=== PATIENT | male | born 1985 | race Caucasian/White ===

== ENCOUNTER 2016-10-21 12:51 | Emergency (ER) | payer OTHER, SELFPAY ==
[2016-10-21] MEDS ORDERED: CLINDAMYCIN INJ 900MG/6ML VIAL As Ordered ONE (13:31)
[2016-10-21 13:49] LABS: BASO % 0.2 % (0.0-1.0); EOS # 0.3 K/mm3 (0.0-0.50); EOS % 1.7 % (0.0-3.0); LARGE UNSTAINED CELL # 0.4 K/mm3 (0.0-0.4); LARGE UNSTAINED CELL % 2.4 % (0.0-4.0); LYMPH # 1.1 K/mm3 (1.5-4.5); LYMPH % 7.4 % (24.0-44.0); MEAN CORPUSCULAR HEMOGLOBIN 30.9 pg (27.0-33.0); MEAN CORPUSCULAR HGB CONC 34.3 g/dl (32.0-36.5); MONO % 6.4 % (0.0-5.0); NEUTROPHILS # 12.6 K/mm3 (1.8-7.7); NEUTROPHILS % 81.8 % (36.0-66.0); PLATELET COUNT, AUTOMATED 245 k/mm3 (150-450); RED CELL DISTRIBUTION WIDTH 11.1 % (11.5-14.5); WHITE BLOOD COUNT 15.4 K/mm3 (4.0-10.0)
[2016-10-21 14:08] LABS: ANION GAP 8 MEQ/L (8-16); BLOOD UREA NITROGEN 15 MG/DL (7-18); CALCIUM LEVEL 9.4 MG/DL (8.5-10.1); CARBON DIOXIDE LEVEL 28 MEQ/L (21-32); CHLORIDE LEVEL 103 MEQ/L (98-107); CREATININE FOR GFR 0.99 MG/DL (0.70-1.30); GLOMERULAR FILTRATION RATE > 60.0 (>60); GLUCOSE, FASTING 96 MG/DL (70-105); SODIUM LEVEL 139 MEQ/L (136-145)
[2016-10-21] MEDS ORDERED: ISOVUE-370 76% 100ML VIAL (Q9967) As Ordered ONE (15:08)
[2016-10-21] MEDS ORDERED: LIDOCAINE 1% MDV 20ML VIAL As Ordered ONE (16:31)
--- NOTE | 2016-10-21 17:13 | EDDOCDS ---
Nurse's Notes [facility] Name: Brandi Martinez Age: 31 yrs Sex: Male : 1985 Arrival Date: 10/21/2016 Time: 12:51 Bed I3 / M3 Private MD: Jt Benjamin Diagnosis: Cutaneous abscess of face Presentation: 10/21 12:57 Presenting complaint: Patient states: Abscess to left cheek began Sunday. Adult Sepsis mlb1 Screening: The patient does not have new or worsening altered mentation. Patient's respiratory rate is less than 22. Systolic blood pressure is greater than 100. Patient has a qSOFA score of 0- Negative Sepsis Screen. Suicide/Homicide risk assessment- the patient denies having any suicidal and/or homicidal ideations and does not present with any other emotional, behavioral or mental health complaints. 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 Transition of care: patient was not received from another setting of care. 12:57 Method Of Arrival: Walkin/Carried/Asstd mlb1 12:57 Acuity: TABITHA Level 4 mlb1 Triage Assessment: 13:00 General: Appears in no apparent distress, Behavior is appropriate for age, cooperative. mlb1 Pain: Location: left jaw Pain currently is 5 out of 10 on a pain scale. HIV screening NA for this visit Offered previously. Historical: - Allergies: no known allergies; - Home Meds: 1. amoxicillin 875 mg Oral tab 1 tab every 12 hours 2. diclofenac sodium 75 mg oral TbEC 1 tab 2 times per day - PMHx: none; - PSHx: none; - Social history: Smoking status: Patient uses tobacco products, light tobacco smoker. No barriers to communication noted, The patient speaks fluent Bahamian, Speaks appropriately for age. - Family history: Not pertinent. - : The pt / caregiver states he / she is not on anticoagulants. Home medication list is obtained from the patient. - Exposure Risk Screening:: None identified. Screenin:41 Screening information is obtained from the patient. Fall risk: No risks identified. dls Assistance ADL's: requires no assistance with activities of daily living. Abuse/DV Screen: The patient / caregiver reports he/she is: not in a situation that causes fear, pain or injury. Nutritional screening: No deficits noted. Advance Directives: Currently, there is no health care proxy. There is no active DNR order. There is no living will. There is no Power of Fiscal Assistant. home support is adequate. Assessment: 13:49 General: Appears in no apparent distress, Behavior is cooperative, pleasant. EENT: mk4 swelling left side of neck . EENT: Denies difficulty swallowing. Respiratory: Airway is patent Respiratory effort is even, unlabored, Respiratory pattern is regular. Derm: Skin is intact, is healthy with good turgor, Skin is pink, warm & dry. 15:01 General: IV meds infused IV fluids still infusing saline lock site remains patent and dls clear awaiting CT results.. 15:09 General: . dls 15:19 General: Pt ambulatory to CT and returned IV site remains patent and clear.. dls 16:23 General: Appears in no apparent distress, Behavior is appropriate for age, cooperative. jmb Neurological: Level of Consciousness is awake, alert, obeys commands, Oriented to person, place, time. Respiratory: Airway is patent Respiratory effort is even, unlabored, Respiratory pattern is regular, symmetrical. 17:09 General: Patient instructed on discharge instructions. Patient asked if there were any b questions regarding discharge, patient stated no. IV discontinued per hospital policy. Patient signed discharge instructions. Patient discharged in stable condition. . Vital Signs: 12:52 BP 167 / 105; Pulse 86; Resp 18; Temp 96.7(O); Pulse Ox 99% on R/A; Weight 80.74 kg; elp Height 6 ft. 2 in. (187.96 cm); Pain 7/10; 17:09 BP 142 / 98; Pulse 90; Resp 18; Temp 98.9(O); Pulse Ox 97% on R/A; Pain 3/10; jmb 12:52 Body Mass Index 22.85 (80.74 kg, 187.96 cm) [facility] Vitals: 12:52 Log In Time: October 21, 2016 at 12:50. [facility] ED Course: 12:52 Patient visited by Amy Ureña PCA. elp 12:52 Jt Benjamin MD is Private Physician. elp 12:52 Patient moved to Waiting elp 12:53 Patient moved to Pre RCE elp 12:57 Patient visited by Jorgito Gold RN. mlb1 12:58 Triage Initiated mlb1 13:00 Patient visited by Jorgito Gold RN. mlb1 13:01 Patient moved to Triage 2 jp4 13:11 [facility] ar2 13:11 Addy Goldstein MD is Attending Physician. ar2 13:11 Patient visited by Kwame Aden PA-C. ar2 13:28 Patient moved to I3 / M3 ar2 13:40 CBC with Diff Sent. dls 13:40 MED Profile Sent. dls 13:40 -Blood Culture Sent. dls 13:40 BLOOD CULTURES Sent. dls 13:41 The patient / caregiver is instructed regarding the plan of care and ED course. dls 13:41 Inserted saline lock: 20 gauge in left antecubital area and blood collected. The dls patient tolerated the procedure well. No procedures done that require assistance. 13:48 Patient visited by Gillian Licea RN. mk4 14:28 [facility] Payment Agreement was scanned into [employer] and attached to record. mm15 14:46 Patient visited by Gillian Licea RN. mk4 15:49 Patient visited by Mariusz Wheat. jml1 16:23 Patient visited by Virgilio Estevez RN. jmb 17:09 Discontinued lock intact, bleeding controlled, pressure dressing applied, No jmb redness/swelling at site. Administered Medications: 13:49 Drug: NS 0.9% 1000 ml [sodium chloride 0.9 % intravenous solution] Route: IV; Rate: mk4 bolus; Site: left antecubital; 16:38 Follow up: IV Status: Completed infusion dls 13:49 Drug: Clindamycin 900 mg Route: IVPB; Infused Over: 30 mins; Site: left antecubital; mk4 16:32 Drug: Lidocaine 10 ml [lidocaine 10 mg/mL (1 %) injection solution (10 mL)] {Note: jmb administered by Kwame Huff} Route: Infiltration; Order Results: Lab Order: CBC with Diff; SPEC'M 10/21/16 13:39 Test: WHITE BLOOD COUNT; Value: 15.4; Range: 4.0-10.0; Abnormal: Above high normal; Units: K/mm3; Status: F Test: RED BLOOD COUNT; Value: 5.23; Range: 4.30-6.10; Units: M/mm3; Status: F Test: HEMOGLOBIN; Value: 16.1; Range: 14.0-18.0; Units: g/dl; Status: F Test: HEMATOCRIT; Value: 47.1; Range: 42.0-52.0; Units: %; Status: F Test: MEAN CORPUSCULAR VOLUME; Value: 90.0; Range: 80.0-96.0; Units: fl; Status: F Test: MEAN CORPUSCULAR HEMOGLOBIN; Value: 30.9; Range: 27.0-33.0; Units: pg; Status: F Test: MEAN CORPUSCULAR HGB CONC; Value: 34.3; Range: 32.0-36.5; Units: g/dl; Status: F Test: RED CELL DISTRIBUTION WIDTH; Value: 11.1; Range: 11.5-14.5; Abnormal: Below low normal; Units: %; Status: F Test: PLATELET COUNT, AUTOMATED; Value: 245; Range: 150-450; Units: k/mm3; Status: F Test: NEUTROPHILS %; Value: 81.8; Range: 36.0-66.0; Abnormal: Above high normal; Units: %; Status: F Test: LYMPH %; Value: 7.4; Range: 24.0-44.0; Abnormal: Below low normal; Units: %; Status: F Test: MONO %; Value: 6.4; Range: 0.0-5.0; Abnormal: Above high normal; Units: %; Status: F Test: EOS %; Value: 1.7; Range: 0.0-3.0; Units: %; Status: F Test: BASO %; Value: 0.2; Range: 0.0-1.0; Units: %; Status: F Test: LARGE UNSTAINED CELL %; Value: 2.4; Range: 0.0-4.0; Units: %; Status: F Test: NEUTROPHILS #; Value: 12.6; Range: 1.8-7.7; Abnormal: Above high normal; Units: K/mm3; Status: F Test: LYMPH #; Value: 1.1; Range: 1.5-4.5; Abnormal: Below low normal; Units: K/mm3; Status: F Test: MONO #; Value: 1.0; Range: 0.0-0.8; Abnormal: Above high normal; Units: K/mm3; Status: F Test: EOS #; Value: 0.3; Range: 0.0-0.50; Units: K/mm3; Status: F Test: BASO #; Value: 0.0; Range: 0.0-0.2; Units: K/mm3; Status: F Test: LARGE UNSTAINED CELL #; Value: 0.4; Range: 0.0-0.4; Units: K/mm3; Status: F Lab Order: MED Profile; SPEC'M 10/21/16 13:38 Test: GLUCOSE, FASTING; Value: 96; Range: 70-105; Units: MG/DL; Status: F Test: BLOOD UREA NITROGEN; Value: 15; Range: 7-18; Units: MG/DL; Status: F Test: CREATININE FOR GFR; Value: 0.99; Range: 0.70-1.30; Units: MG/DL; Status: F Test: GLOMERULAR FILTRATION RATE; Value: > 60.0; Range: >60; Status: F Test: SODIUM LEVEL; Value: 139; Range: 136-145; Units: MEQ/L; Status: F Test: POTASSIUM SERUM; Value: 4.0; Range: 3.5-5.1; Units: MEQ/L; Status: F Test: CHLORIDE LEVEL; Value: 103; Range: 98-107; Units: MEQ/L; Status: F Test: CARBON DIOXIDE LEVEL; Value: 28; Range: 21-32; Units: MEQ/L; Status: F Test: ANION GAP; Value: 8; Range: 8-16; Units: MEQ/L; Status: F Test: CALCIUM LEVEL; Value: 9.4; Range: 8.5-10.1; Units: MG/DL; Status: F Test Note: ; Units are mL/min/1.73 m2 Chronic Kidney Disease Staging per NKF: Stage I & II GFR >=60 Normal to Mildly Decreased Stage III GFR 30-59 Moderately Decreased Stage IV GFR 15-29 Severely Decreased Stage V GFR <15 Very Little GFR Left ESRD GFR <15 on MANAGER PSYCHOLOGY Outcome: 17:02 Discharge ordered by Provider. ar2 17:09 Discharge Assessment: Patient awake, alert and oriented x 3. No cognitive and/or jmb functional deficits noted. Patient verbalized understanding of disposition instructions. Patient awake and alert. obeys commands, Oriented to person, place and time. Patient verbalized understanding of disposition instructions. Patient has no functional deficits. patient administered narcotics - no. The following High Risk Discharge criteria are identified: None. Discharged to home ambulatory, with significant other. Condition: stable Condition: improved. Discharge instructions given to patient, Instructed on discharge instructions, follow up and referral plans. medication usage, Demonstrated understanding of instructions, medications, Pt was receptive of discharge instructions/ teaching. Prescriptions given X 2. CT Study completed. Property sent home with patient. 17:12 Patient left the ED. jmb Signatures: Lili Estrada, RN RN dls Jorgito Gold RN RN mlb1 Kwame Aden PA-C PAGallito ar2 Mariusz Wheat jml1 Jackie Evans mm15 Amy Ureña, ASSISTANT PLANT MANAGER ASSISTANT PLANT MANAGER Virgilio Jones,RN RN sierrab Gillian Licea RN RN mk4 Ramírez Bates jp4 Corrections: (The following items were deleted from the chart) 12:58 12:57 Acuity: TABITHA Level 3 mlb1 mlb1 MTDD
--- NOTE | 2016-10-21 17:13 | EDDOCDS ---
Physician Documentation [facility] Name: Brandi Martinez Age: 31 yrs Sex: Male : 1985 Arrival Date: 10/21/2016 Time: 12:51 Bed I3 / M3 Private MD: Jt Benjamin Disposition: 10/21/16 17:02 Discharged to Home/Self Care. Impression: Cutaneous abscess of face. - Condition is Stable. - Discharge Instructions: Abscess, Incision and Drainage. - Prescriptions for Clindamycin HCl 300 mg Oral Capsule - take 1 capsule by ORAL route every 6 hours; 39 capsule. [place] 5- 325 mg Oral Tablet - take 1 tablet by ORAL route every 6 hours As needed MDD: 4 tabs; 6 tablet. - Medication Reconciliation, Local Pharmacy Hours form. - Follow up: Emergency Department; When: 1 - 2 days; Reason: Recheck today's complaints. - Problem is new. - Symptoms have improved. - Notes: take medications as prescribed. return to ER on Sunday for recheck. Historical: - Allergies: no known allergies; - Home Meds: 1. amoxicillin 875 mg Oral tab 1 tab every 12 hours 2. diclofenac sodium 75 mg oral TbEC 1 tab 2 times per day - PMHx: none; - PSHx: none; - Social history: Smoking status: Patient uses tobacco products, light tobacco smoker. No barriers to communication noted, The patient speaks fluent Italian, Speaks appropriately for age. - Family history: Not pertinent. - : The pt / caregiver states he / she is not on anticoagulants. Home medication list is obtained from the patient. - Exposure Risk Screening:: None identified. Vital Signs: 10/21 12:52 BP 167 / 105; Pulse 86; Resp 18; Temp 96.7(O); Pulse Ox 99% on R/A; Weight 80.74 kg / elp 178 lbs; Height 6 ft. 2 in. (187.96 cm); Pain 7/10; 17:09 BP 142 / 98; Pulse 90; Resp 18; Temp 98.9(O); Pulse Ox 97% on R/A; Pain 3/10; jmb 12:52 Body Mass Index 22.85 (80.74 kg, 187.96 cm) elp MDM: 13:27 IV Saline Lock ordered. ar2 13:27 -Blood Culture (Adults Only), peripheral from different site, or from device/port/PICC ar2 etc. if present ordered. 13:27 NS 0.9% 1000 ml IV at bolus once ordered. ar2 13:27 Clindamycin 900 mg IVPB once over 30 mins; dilute in 50mL of NS or D5W ordered. ar2 13:28 CBC with Diff Ordered. EDMS 13:28 MED Profile Ordered. EDMS 13:28 -Blood Culture Ordered. EDMS 13:29 CT Neck With Contrast Ordered. EDMS 13:32 -Blood Culture (Adults Only), peripheral from different site, or from device/port/PICC jml1 etc. if present complete. 13:34 BLOOD CULTURES Ordered. EDMS 14:16 CBC with Diff Reviewed. ar2 14:16 MED Profile Reviewed. ar2 14:20 Financial registration complete. mm15 14:28 [facility] Payment Agreement was scanned into [employer] and attached to record. mm15 16:31 Lidocaine 10 mg/mL (1 %) 10 ml Infiltration once; to bedside ordered. ar2 16:58 Wound Culture & GS - All Other Sources Ordered. EDMS Administered Medications: 13:49 Drug: NS 0.9% 1000 ml [sodium chloride 0.9 % intravenous solution] Route: IV; Rate: mk4 bolus; Site: left antecubital; 16:38 Follow up: IV Status: Completed infusion dls 13:49 Drug: Clindamycin 900 mg Route: IVPB; Infused Over: 30 mins; Site: left antecubital; mk4 16:32 Drug: Lidocaine 10 ml [lidocaine 10 mg/mL (1 %) injection solution (10 mL)] {Note: jmb administered by Kwame Huff} Route: Infiltration; Signatures: Dispatcher [employer] EDMS Jorgito Gold RN RN mlb1 Kwame Aden PAGallito PAJuliaC ar2 Mariusz Wheat jml1 Jackie Evans mm15 Virgilio Estevez RN RN Gillian Sparrow RN RN mk4 Lili Estrada RN dls The chart was reviewed and I authenticate all verbal orders and agree with the evaluation and treatment provided.Attachments: 14:28 [facility] [place] mm15 MTDD
--- NOTE | 2016-10-22 09:25 | REP ---
CT SOFT-TISSUE NECK WITH CONTRAST: 10/21/2016. Clinical history: Left neck abscess. Technique. The patient received 75 mL as Isovue 370 scanning through the neck with both coronal and sagittal reconstructions. Findings: There were no prior studies. Prominent soft tissue swelling of the left submandibular region. This is lateral and inferior to the alveolar ridge of the mandible. I do not see bony destructive lesion of that alveolar ridge or ramus of the mandible. There is soft-tissue swelling with subcutaneous edema fairly lucent center with ill-defined enhancing edges measuring about 2.9 x 2.8 x 1.4 cm for a fluid collection which appears to be pointing into the subcutaneous tissues. Submandibular glands are intact. Submandibular and jugular nodes are prominent on that side suggesting reactive nodes other nodes in the anterior posterior cervical chain are not enlarged. Tongue base intact. Parapharyngeal space shows some preservation of fat. The airway from the nasopharynx through oropharynx, hypopharynx, trachea and subglottic trachea were intact. The bone windows show dentition grossly intact without destructive erosive lesions of that mandible. Visualized sinuses were clear. The underlying cervical vertebral bodies, posterior elements, disc spaces and central canal is intact. The base of the brain visible was unremarkable as were the mastoids. Impression: 1. Prominent soft tissue swelling over the left submandibular region with large soft tissue abscess 2.9 x 2.8 x 1.4 cm for the fluid collection with enhancing rim noted with much more extensive zone of edema surrounding it. This is almost pointed to the skin surface. However the submandibular glands are not grossly enlarged. There are reactive nodes nearby. No destructive lesions in the mandible. Signed by Burak Brock MD 10/22/2016 06:53 P
--- NOTE | 2016-10-23 18:12 | EDDOCDS ---
Physician Documentation [facility] Name: Brandi Martinez Age: 31 yrs Sex: Male : 1985 Arrival Date: 10/21/2016 Time: 12:51 Bed I3 / M3 Private MD: Jt Benjamin Disposition: 10/21/16 17:02 Discharged to Home/Self Care. Impression: Cutaneous abscess of face. - Condition is Stable. - Discharge Instructions: Abscess, Incision and Drainage. - Prescriptions for Clindamycin HCl 300 mg Oral Capsule - take 1 capsule by ORAL route every 6 hours; 39 capsule. [place] 5- 325 mg Oral Tablet - take 1 tablet by ORAL route every 6 hours As needed MDD: 4 tabs; 6 tablet. - Medication Reconciliation, Local Pharmacy Hours form. - Follow up: Emergency Department; When: 1 - 2 days; Reason: Recheck today's complaints. - Problem is new. - Symptoms have improved. - Notes: take medications as prescribed. return to ER on Sunday for recheck. Historical: - Allergies: no known allergies; - Home Meds: 1. amoxicillin 875 mg Oral tab 1 tab every 12 hours 2. diclofenac sodium 75 mg oral TbEC 1 tab 2 times per day - PMHx: none; - PSHx: none; - Social history: Smoking status: Patient uses tobacco products, light tobacco smoker. No barriers to communication noted, The patient speaks fluent Vietnamese, Speaks appropriately for age. - Family history: Not pertinent. - : The pt / caregiver states he / she is not on anticoagulants. Home medication list is obtained from the patient. - Exposure Risk Screening:: None identified. Vital Signs: 10/21 12:52 BP 167 / 105; Pulse 86; Resp 18; Temp 96.7(O); Pulse Ox 99% on R/A; Weight 80.74 kg / elp 178 lbs; Height 6 ft. 2 in. (187.96 cm); Pain 7/10; 17:09 BP 142 / 98; Pulse 90; Resp 18; Temp 98.9(O); Pulse Ox 97% on R/A; Pain 3/10; jmb 12:52 Body Mass Index 22.85 (80.74 kg, 187.96 cm) elp MDM: 13:27 IV Saline Lock ordered. ar2 13:27 -Blood Culture (Adults Only), peripheral from different site, or from device/port/PICC ar2 etc. if present ordered. 13:27 NS 0.9% 1000 ml IV at bolus once ordered. ar2 13:27 Clindamycin 900 mg IVPB once over 30 mins; dilute in 50mL of NS or D5W ordered. ar2 13:28 CBC with Diff Ordered. EDMS 13:28 MED Profile Ordered. EDMS 13:28 -Blood Culture Ordered. EDMS 13:29 CT Neck With Contrast Ordered. EDMS 13:32 -Blood Culture (Adults Only), peripheral from different site, or from device/port/PICC jml1 etc. if present complete. 13:34 BLOOD CULTURES Ordered. EDMS 14:16 CBC with Diff Reviewed. ar2 14:16 MED Profile Reviewed. ar2 14:20 Financial registration complete. mm15 14:28 [facility] Payment Agreement was scanned into [employer] and attached to record. mm15 16:31 Lidocaine 10 mg/mL (1 %) 10 ml Infiltration once; to bedside ordered. ar2 16:58 Wound Culture & GS - All Other Sources Ordered. EDMS 21:50 T-Sheet-- Draft Copy was scanned into [employer] and attached to record. klr Administered Medications: 13:49 Drug: NS 0.9% 1000 ml [sodium chloride 0.9 % intravenous solution] Route: IV; Rate: mk4 bolus; Site: left antecubital; 16:38 Follow up: IV Status: Completed infusion dls 13:49 Drug: Clindamycin 900 mg Route: IVPB; Infused Over: 30 mins; Site: left antecubital; mk4 16:32 Drug: Lidocaine 10 ml [lidocaine 10 mg/mL (1 %) injection solution (10 mL)] {Note: jmb administered by Kwame Huff} Route: Infiltration; Signatures: Dispatcher [employer] EDMS Jorgito Gold RN RN Kwame Callejas PA-C PA-C ar2 Mariusz Wheat jml1 Jackie Evans mm15 Virgilio Estevez RN RN jmb King, Margaret, RN RN barb4 Mariel Jerome Debra RN dls The chart was reviewed and I authenticate all verbal orders and agree with the evaluation and treatment provided.Attachments: 14:28 [facility] mm15 21:50 T-Sheet-- Draft Copy klr Chart Complete MTDD
--- NOTE | 2016-10-23 18:12 | EDDOCDS ---
Physician Documentation [facility] Name: Brandi Martinez Age: 31 yrs Sex: Male : 1985 Arrival Date: 10/21/2016 Time: 12:51 Bed I3 / M3 Private MD: Jt Benjamin Disposition: 10/21/16 17:02 Discharged to Home/Self Care. Impression: Cutaneous abscess of face. - Condition is Stable. - Discharge Instructions: Abscess, Incision and Drainage. - Prescriptions for Clindamycin HCl 300 mg Oral Capsule - take 1 capsule by ORAL route every 6 hours; 39 capsule. [place] 5- 325 mg Oral Tablet - take 1 tablet by ORAL route every 6 hours As needed MDD: 4 tabs; 6 tablet. - Medication Reconciliation, Local Pharmacy Hours form. - Follow up: Emergency Department; When: 1 - 2 days; Reason: Recheck today's complaints. - Problem is new. - Symptoms have improved. - Notes: take medications as prescribed. return to ER on Sunday for recheck. Historical: - Allergies: no known allergies; - Home Meds: 1. amoxicillin 875 mg Oral tab 1 tab every 12 hours 2. diclofenac sodium 75 mg oral TbEC 1 tab 2 times per day - PMHx: none; - PSHx: none; - Social history: Smoking status: Patient uses tobacco products, light tobacco smoker. No barriers to communication noted, The patient speaks fluent Tongan, Speaks appropriately for age. - Family history: Not pertinent. - : The pt / caregiver states he / she is not on anticoagulants. Home medication list is obtained from the patient. - Exposure Risk Screening:: None identified. Vital Signs: 10/21 12:52 BP 167 / 105; Pulse 86; Resp 18; Temp 96.7(O); Pulse Ox 99% on R/A; Weight 80.74 kg / elp 178 lbs; Height 6 ft. 2 in. (187.96 cm); Pain 7/10; 17:09 BP 142 / 98; Pulse 90; Resp 18; Temp 98.9(O); Pulse Ox 97% on R/A; Pain 3/10; jmb 12:52 Body Mass Index 22.85 (80.74 kg, 187.96 cm) elp MDM: 13:27 IV Saline Lock ordered. ar2 13:27 -Blood Culture (Adults Only), peripheral from different site, or from device/port/PICC ar2 etc. if present ordered. 13:27 NS 0.9% 1000 ml IV at bolus once ordered. ar2 13:27 Clindamycin 900 mg IVPB once over 30 mins; dilute in 50mL of NS or D5W ordered. ar2 13:28 CBC with Diff Ordered. EDMS 13:28 MED Profile Ordered. EDMS 13:28 -Blood Culture Ordered. EDMS 13:29 CT Neck With Contrast Ordered. EDMS 13:32 -Blood Culture (Adults Only), peripheral from different site, or from device/port/PICC jml1 etc. if present complete. 13:34 BLOOD CULTURES Ordered. EDMS 14:16 CBC with Diff Reviewed. ar2 14:16 MED Profile Reviewed. ar2 14:20 Financial registration complete. mm15 14:28 [facility] Payment Agreement was scanned into [employer] and attached to record. mm15 16:31 Lidocaine 10 mg/mL (1 %) 10 ml Infiltration once; to bedside ordered. ar2 16:58 Wound Culture & GS - All Other Sources Ordered. EDMS 21:50 T-Sheet-- Draft Copy was scanned into [employer] and attached to record. klr Administered Medications: 13:49 Drug: NS 0.9% 1000 ml [sodium chloride 0.9 % intravenous solution] Route: IV; Rate: mk4 bolus; Site: left antecubital; 16:38 Follow up: IV Status: Completed infusion dls 13:49 Drug: Clindamycin 900 mg Route: IVPB; Infused Over: 30 mins; Site: left antecubital; mk4 16:32 Drug: Lidocaine 10 ml [lidocaine 10 mg/mL (1 %) injection solution (10 mL)] {Note: jmb administered by Kwame Huff} Route: Infiltration; Signatures: Dispatcher [employer] EDMS Jorgito Gold RN RN Kwame Callejas PA-C PA-C ar2 Mariusz Wheat jml1 Jackie Evans mm15 Virgilio Estevez RN RN jmb King, Margaret, RN RN barb4 Mariel Jerome Debra RN dls The chart was reviewed and I authenticate all verbal orders and agree with the evaluation and treatment provided.Attachments: 14:28 [facility] [place] Payment Agreement mm15 21:50 T-Sheet-- Draft Copy klr Chart Complete MTDD
--- NOTE | 2016-10-23 18:13 | EDDOCDS ---
Nurse's Notes [facility] Name: Brandi Martinez Age: 31 yrs Sex: Male : 1985 Arrival Date: 10/21/2016 Time: 12:51 Bed I3 / M3 Private MD: Jt Benjamin Diagnosis: Cutaneous abscess of face Presentation: 10/21 12:57 Presenting complaint: Patient states: Abscess to left cheek began Sunday. Adult Sepsis mlb1 Screening: The patient does not have new or worsening altered mentation. Patient's respiratory rate is less than 22. Systolic blood pressure is greater than 100. Patient has a qSOFA score of 0- Negative Sepsis Screen. Suicide/Homicide risk assessment- the patient denies having any suicidal and/or homicidal ideations and does not present with any other emotional, behavioral or mental health complaints. Status: Patient is not a government service executive or dependent. Transition of care: patient was not received from another setting of care. 12:57 Method Of Arrival: Walkin/Carried/Asstd mlb1 12:57 Acuity: TABITHA Level 4 mlb1 Triage Assessment: 13:00 General: Appears in no apparent distress, Behavior is appropriate for age, cooperative. mlb1 Pain: Location: left jaw Pain currently is 5 out of 10 on a pain scale. HIV screening NA for this visit Offered previously. Historical: - Allergies: no known allergies; - Home Meds: 1. amoxicillin 875 mg Oral tab 1 tab every 12 hours 2. diclofenac sodium 75 mg oral TbEC 1 tab 2 times per day - PMHx: none; - PSHx: none; - Social history: Smoking status: Patient uses tobacco products, light tobacco smoker. No barriers to communication noted, The patient speaks fluent Malawian, Speaks appropriately for age. - Family history: Not pertinent. - : The pt / caregiver states he / she is not on anticoagulants. Home medication list is obtained from the patient. - Exposure Risk Screening:: None identified. Screenin:41 Screening information is obtained from the patient. Fall risk: No risks identified. dls Assistance ADL's: requires no assistance with activities of daily living. Abuse/DV Screen: The patient / caregiver reports he/she is: not in a situation that causes fear, pain or injury. Nutritional screening: No deficits noted. Advance Directives: Currently, there is no health care proxy. There is no active DNR order. There is no living will. There is no Power of Multimedia Manager. home support is adequate. Assessment: 13:49 General: Appears in no apparent distress, Behavior is cooperative, pleasant. EENT: mk4 swelling left side of neck . EENT: Denies difficulty swallowing. Respiratory: Airway is patent Respiratory effort is even, unlabored, Respiratory pattern is regular. Derm: Skin is intact, is healthy with good turgor, Skin is pink, warm & dry. 15:01 General: IV meds infused IV fluids still infusing saline lock site remains patent and dls clear awaiting CT results.. 15:09 General: . dls 15:19 General: Pt ambulatory to CT and returned IV site remains patent and clear.. dls 16:23 General: Appears in no apparent distress, Behavior is appropriate for age, cooperative. jmb Neurological: Level of Consciousness is awake, alert, obeys commands, Oriented to person, place, time. Respiratory: Airway is patent Respiratory effort is even, unlabored, Respiratory pattern is regular, symmetrical. 17:09 General: Patient instructed on discharge instructions. Patient asked if there were any b questions regarding discharge, patient stated no. IV discontinued per hospital policy. Patient signed discharge instructions. Patient discharged in stable condition. . Vital Signs: 12:52 BP 167 / 105; Pulse 86; Resp 18; Temp 96.7(O); Pulse Ox 99% on R/A; Weight 80.74 kg; elp Height 6 ft. 2 in. (187.96 cm); Pain 7/10; 17:09 BP 142 / 98; Pulse 90; Resp 18; Temp 98.9(O); Pulse Ox 97% on R/A; Pain 3/10; jmb 12:52 Body Mass Index 22.85 (80.74 kg, 187.96 cm) [facility] Vitals: 12:52 Log In Time: October 21, 2016 at 12:50. [facility] ED Course: 12:52 Patient visited by Amy Ureña PCA. elp 12:52 Jt Benjamin MD is Private Physician. elp 12:52 Patient moved to Waiting elp 12:53 Patient moved to Pre RCE elp 12:57 Patient visited by Jorgito Gold RN. mlb1 12:58 Triage Initiated mlb1 13:00 Patient visited by Jorgito Gold RN. mlb1 13:01 Patient moved to Triage 2 jp4 13:11 Kwame Aden PA-C is PHCP. ar2 13:11 Addy Goldstein MD is Attending Physician. ar2 13:11 Patient visited by Kwame Aden PA-C. ar2 13:28 Patient moved to I3 / M3 ar2 13:40 CBC with Diff Sent. dls 13:40 MED Profile Sent. dls 13:40 -Blood Culture Sent. dls 13:40 BLOOD CULTURES Sent. dls 13:41 The patient / caregiver is instructed regarding the plan of care and ED course. dls 13:41 Inserted saline lock: 20 gauge in left antecubital area and blood collected. The dls patient tolerated the procedure well. No procedures done that require assistance. 13:48 Patient visited by Gillian Licea RN. mk4 14:28 PENDING SALE TO [facility] Payment Agreement was scanned into [employer] and attached to record. mm15 14:46 Patient visited by Gillian Licea RN. mk4 15:49 Patient visited by Mariusz Wheat. jml1 16:23 Patient visited by Virgilio Estevez RN. jmb 17:09 Discontinued lock intact, bleeding controlled, pressure dressing applied, No jmb redness/swelling at site. 17:14 Wound Culture & GS - All Other Sources Sent. jml1 21:50 T-Sheet-- Draft Copy was scanned into [employer] and attached to record. klr 02 09:40 CT Neck With Contrast Returned. EDMS Administered Medications: 10/21 13:49 Drug: NS 0.9% 1000 ml [sodium chloride 0.9 % intravenous solution] Route: IV; Rate: mk4 bolus; Site: left antecubital; 16:38 Follow up: IV Status: Completed infusion dls 13:49 Drug: Clindamycin 900 mg Route: IVPB; Infused Over: 30 mins; Site: left antecubital; mk4 16:32 Drug: Lidocaine 10 ml [lidocaine 10 mg/mL (1 %) injection solution (10 mL)] {Note: jmb administered by Kwame Garcia.} Route: Infiltration; Order Results: Lab Order: CBC with Diff; SPEC'M 10/21/16 13:39 Test: WHITE BLOOD COUNT; Value: 15.4; Range: 4.0-10.0; Abnormal: Above high normal; Units: K/mm3; Status: F Test: RED BLOOD COUNT; Value: 5.23; Range: 4.30-6.10; Units: M/mm3; Status: F Test: HEMOGLOBIN; Value: 16.1; Range: 14.0-18.0; Units: g/dl; Status: F Test: HEMATOCRIT; Value: 47.1; Range: 42.0-52.0; Units: %; Status: F Test: MEAN CORPUSCULAR VOLUME; Value: 90.0; Range: 80.0-96.0; Units: fl; Status: F Test: MEAN CORPUSCULAR HEMOGLOBIN; Value: 30.9; Range: 27.0-33.0; Units: pg; Status: F Test: MEAN CORPUSCULAR HGB CONC; Value: 34.3; Range: 32.0-36.5; Units: g/dl; Status: F Test: RED CELL DISTRIBUTION WIDTH; Value: 11.1; Range: 11.5-14.5; Abnormal: Below low normal; Units: %; Status: F Test: PLATELET COUNT, AUTOMATED; Value: 245; Range: 150-450; Units: k/mm3; Status: F Test: NEUTROPHILS %; Value: 81.8; Range: 36.0-66.0; Abnormal: Above high normal; Units: %; Status: F Test: LYMPH %; Value: 7.4; Range: 24.0-44.0; Abnormal: Below low normal; Units: %; Status: F Test: MONO %; Value: 6.4; Range: 0.0-5.0; Abnormal: Above high normal; Units: %; Status: F Test: EOS %; Value: 1.7; Range: 0.0-3.0; Units: %; Status: F Test: BASO %; Value: 0.2; Range: 0.0-1.0; Units: %; Status: F Test: LARGE UNSTAINED CELL %; Value: 2.4; Range: 0.0-4.0; Units: %; Status: F Test: NEUTROPHILS #; Value: 12.6; Range: 1.8-7.7; Abnormal: Above high normal; Units: K/mm3; Status: F Test: LYMPH #; Value: 1.1; Range: 1.5-4.5; Abnormal: Below low normal; Units: K/mm3; Status: F Test: MONO #; Value: 1.0; Range: 0.0-0.8; Abnormal: Above high normal; Units: K/mm3; Status: F Test: EOS #; Value: 0.3; Range: 0.0-0.50; Units: K/mm3; Status: F Test: BASO #; Value: 0.0; Range: 0.0-0.2; Units: K/mm3; Status: F Test: LARGE UNSTAINED CELL #; Value: 0.4; Range: 0.0-0.4; Units: K/mm3; Status: F Lab Order: MED Profile; SPEC'M 10/21/16 13:38 Test: GLUCOSE, FASTING; Value: 96; Range: 70-105; Units: MG/DL; Status: F Test: BLOOD UREA NITROGEN; Value: 15; Range: 7-18; Units: MG/DL; Status: F Test: CREATININE FOR GFR; Value: 0.99; Range: 0.70-1.30; Units: MG/DL; Status: F Test: GLOMERULAR FILTRATION RATE; Value: > 60.0; Range: >60; Status: F Test: SODIUM LEVEL; Value: 139; Range: 136-145; Units: MEQ/L; Status: F Test: POTASSIUM SERUM; Value: 4.0; Range: 3.5-5.1; Units: MEQ/L; Status: F Test: CHLORIDE LEVEL; Value: 103; Range: 98-107; Units: MEQ/L; Status: F Test: CARBON DIOXIDE LEVEL; Value: 28; Range: 21-32; Units: MEQ/L; Status: F Test: ANION GAP; Value: 8; Range: 8-16; Units: MEQ/L; Status: F Test: CALCIUM LEVEL; Value: 9.4; Range: 8.5-10.1; Units: MG/DL; Status: F Test Note: ; Units are mL/min/1.73 m2 Chronic Kidney Disease Staging per NKF: Stage I & II GFR >=60 Normal to Mildly Decreased Stage III GFR 30-59 Moderately Decreased Stage IV GFR 15-29 Severely Decreased Stage V GFR <15 Very Little GFR Left ESRD GFR <15 on REAL [employer]OK[employer] ASSOCIATE Lab Order: -Blood Culture; SPEC'M 10/21/16 13:38 Test: BLOOD CULTURE; Value: No growth after 24 hours . All specimens observed; Status: F Test: BLOOD CULTURE; Value: for 5 days. Results final at that time.; Status: F Test: BLOOD CULTURE; Value: No Growth after 48 hours. All Specimens observed; Status: F Test: BLOOD CULTURE; Value: for 7 days. Results final at that time.; Status: F Lab Order: BLOOD CULTURES; SPEC'M 10/21/16 13:39 Test: BLOOD CULTURE; Value: No growth after 24 hours . All specimens observed; Status: F Test: BLOOD CULTURE; Value: for 5 days. Results final at that time.; Status: F Test: BLOOD CULTURE; Value: No Growth after 48 hours. All Specimens observed; Status: F Test: BLOOD CULTURE; Value: for 7 days. Results final at that time.; Status: F Lab Order: Wound Culture & GS - All Other Sources; SPEC'M 10/21/16 17:15 Test: GRAM STAIN; Value: GRAM STAIN RESULT; Status: F Test: GRAM STAIN; Value: FEW RBCS; Status: F Test: GRAM STAIN; Value: NO ORGANISMS SEEN; Status: F Radiology Order: CT Neck With Contrast Test: CT Neck With Contrast REASON FOR EXAMINATION: left neck abscess; CT SOFT-TISSUE NECK WITH CONTRAST: 10/21/2016.; ; Clinical history: Left neck abscess.; ; Technique. The patient received 75 mL as Isovue 370 scanning through the neck; with both coronal and sagittal reconstructions.; ; Findings: There were no prior studies. Prominent soft tissue swelling of the; left submandibular region. This is lateral and inferior to the alveolar ridge of; the mandible. I do not see bony destructive lesion of that alveolar ridge or; ramus of the mandible. There is soft-tissue swelling with subcutaneous edema; fairly lucent center with ill-defined enhancing edges measuring about 2.9 x 2.8 x; 1.4 cm for a fluid collection which appears to be pointing into the subcutaneous; tissues. Submandibular glands are intact. Submandibular and jugular nodes are; prominent on that side suggesting reactive nodes other nodes in the anterior; posterior cervical chain are not enlarged. Tongue base intact. Parapharyngeal; space shows some preservation of fat. The airway from the nasopharynx through; oropharynx, hypopharynx, trachea and subglottic trachea were intact. The bone; windows show dentition grossly intact without destructive erosive lesions of that; mandible. Visualized sinuses were clear. The underlying cervical vertebral; bodies, posterior elements, disc spaces and central canal is intact. The base of; the brain visible was unremarkable as were the mastoids.; ; Impression:; ; 1. Prominent soft tissue swelling over the left submandibular region with large; soft tissue abscess 2.9 x 2.8 x 1.4 cm for the fluid collection with enhancing; rim noted with much more extensive zone of edema surrounding it. This is almost; pointed to the skin surface. However the submandibular glands are not grossly; enlarged. There are reactive nodes nearby. No destructive lesions in the; mandible.; ; ; Signed by; Burak Brock MD 10/22/2016 06:53 P; Outcome: 17:02 Discharge ordered by Provider. ar2 17:09 Discharge Assessment: Patient awake, alert and oriented x 3. No cognitive and/or jmb functional deficits noted. Patient verbalized understanding of disposition instructions. Patient awake and alert. obeys commands, Oriented to person, place and time. Patient verbalized understanding of disposition instructions. Patient has no functional deficits. patient administered narcotics - no. The following High Risk Discharge criteria are identified: None. Discharged to home ambulatory, with significant other. Condition: stable Condition: improved. Discharge instructions given to patient, Instructed on discharge instructions, follow up and referral plans. medication usage, Demonstrated understanding of instructions, medications, Pt was receptive of discharge instructions/ teaching. Prescriptions given X 2. CT Study completed. Property sent home with patient. 17:12 Patient left the ED. martir Signatures: Dispatcher [employer] EDMS Lili Estrada RN RN Jorgito Monterroso RN RN mlb1 Kwame Aden PA-C PAG[place]ito ar2 Mariusz Wheat jml1 Jackie Evans mm15 Amy Ureña, KAMARI CAFETERIA SUPERVISOR Virgilio JonesRN RN Gillian Sparrow RN RN barb4 Ramírez Bates Kathie klr Corrections: (The following items were deleted from the chart) 12:58 12:57 Acuity: TABITHA Level 3 mlb1 mlb1 Chart Complete MTDD
--- NOTE | 2016-10-27 14:27 | EDDOCDS ---
Physician Documentation [facility] Name: Brandi Martinez Age: 31 yrs Sex: Male : 1985 Arrival Date: 10/21/2016 Time: 12:51 Bed I3 / M3 Private MD: Jt Benjamin Disposition: 10/21/16 17:02 Discharged to Home/Self Care. Impression: Cutaneous abscess of face. - Condition is Stable. - Discharge Instructions: Abscess, Incision and Drainage. - Prescriptions for Clindamycin HCl 300 mg Oral Capsule - take 1 capsule by ORAL route every 6 hours; 39 capsule. [place] 5- 325 mg Oral Tablet - take 1 tablet by ORAL route every 6 hours As needed MDD: 4 tabs; 6 tablet. - Medication Reconciliation, Local Pharmacy Hours form. - Follow up: Emergency Department; When: 1 - 2 days; Reason: Recheck today's complaints. - Problem is new. - Symptoms have improved. - Notes: take medications as prescribed. return to ER on Sunday for recheck. Historical: - Allergies: no known allergies; - Home Meds: 1. amoxicillin 875 mg Oral tab 1 tab every 12 hours 2. diclofenac sodium 75 mg oral TbEC 1 tab 2 times per day - PMHx: none; - PSHx: none; - Social history: Smoking status: Patient uses tobacco products, light tobacco smoker. No barriers to communication noted, The patient speaks fluent Stateless, Speaks appropriately for age. - Family history: Not pertinent. - : The pt / caregiver states he / she is not on anticoagulants. Home medication list is obtained from the patient. - Exposure Risk Screening:: None identified. Vital Signs: 10/21 12:52 BP 167 / 105; Pulse 86; Resp 18; Temp 96.7(O); Pulse Ox 99% on R/A; Weight 80.74 kg / elp 178 lbs; Height 6 ft. 2 in. (187.96 cm); Pain 7/10; 17:09 BP 142 / 98; Pulse 90; Resp 18; Temp 98.9(O); Pulse Ox 97% on R/A; Pain 3/10; jmb 12:52 Body Mass Index 22.85 (80.74 kg, 187.96 cm) elp MDM: 13:27 IV Saline Lock ordered. ar2 13:27 -Blood Culture (Adults Only), peripheral from different site, or from device/port/PICC ar2 etc. if present ordered. 13:27 NS 0.9% 1000 ml IV at bolus once ordered. ar2 13:27 Clindamycin 900 mg IVPB once over 30 mins; dilute in 50mL of NS or D5W ordered. ar2 13:28 CBC with Diff Ordered. EDMS 13:28 MED Profile Ordered. EDMS 13:28 -Blood Culture Ordered. EDMS 13:29 CT Neck With Contrast Ordered. EDMS 13:32 -Blood Culture (Adults Only), peripheral from different site, or from device/port/PICC jml1 etc. if present complete. 13:34 BLOOD CULTURES Ordered. EDMS 14:16 CBC with Diff Reviewed. ar2 14:16 MED Profile Reviewed. ar2 14:20 Financial registration complete. mm15 14:28 [facility] Payment Agreement was scanned into [email or web address] and attached to record. mm15 16:31 Lidocaine 10 mg/mL (1 %) 10 ml Infiltration once; to bedside ordered. ar2 16:58 Wound Culture & GS - All Other Sources Ordered. EDMS 21:50 T-Sheet-- Draft Copy was scanned into [email or web address] and attached to record. klr Administered Medications: 13:49 Drug: NS 0.9% 1000 ml [sodium chloride 0.9 % intravenous solution] Route: IV; Rate: mk4 bolus; Site: left antecubital; 16:38 Follow up: IV Status: Completed infusion dls 13:49 Drug: Clindamycin 900 mg Route: IVPB; Infused Over: 30 mins; Site: left antecubital; mk4 16:32 Drug: Lidocaine 10 ml [lidocaine 10 mg/mL (1 %) injection solution (10 mL)] {Note: jmb administered by Kwame Huff} Route: Infiltration; Signatures: Dispatcher [employer] EDMS Jorgito Gold RN RN Kwame Callejas PA-C PA-C ar2 Mariusz Wheat jml1 Jackie Evans mm15 Virgilio Estevez RN RN jmb King, Margaret, RN RN barb4 Mariel Jerome Debra RN dls The chart was reviewed and I authenticate all verbal orders and agree with the evaluation and treatment provided.Attachments: 14:28 [facility] [place] [facility] Agreement mm15 21:50 T-Sheet-- Draft Copy klr Chart Complete MTDD
--- NOTE | 2016-10-27 14:27 | EDDOCDS ---
Nurse's Notes [facility] Name: Brandi Martinez Age: 31 yrs Sex: Male : 1985 Arrival Date: 10/21/2016 Time: 12:51 Bed I3 / M3 Private MD: Jt Benjamin Diagnosis: Cutaneous abscess of face Presentation: 10/21 12:57 Presenting complaint: Patient states: Abscess to left cheek began Sunday. Adult Sepsis mlb1 Screening: The patient does not have new or worsening altered mentation. Patient's respiratory rate is less than 22. Systolic blood pressure is greater than 100. Patient has a qSOFA score of 0- Negative Sepsis Screen. Suicide/Homicide risk assessment- the patient denies having any suicidal and/or homicidal ideations and does not present with any other emotional, behavioral or mental health complaints. Status: Patient is not a service person or dependent. Transition of care: patient was not received from another setting of care. 12:57 Method Of Arrival: Walkin/Carried/Asstd mlb1 12:57 Acuity: TABITHA Level 4 mlb1 Triage Assessment: 13:00 General: Appears in no apparent distress, Behavior is appropriate for age, cooperative. mlb1 Pain: Location: left jaw Pain currently is 5 out of 10 on a pain scale. HIV screening NA for this visit Offered previously. Historical: - Allergies: no known allergies; - Home Meds: 1. amoxicillin 875 mg Oral tab 1 tab every 12 hours 2. diclofenac sodium 75 mg oral TbEC 1 tab 2 times per day - PMHx: none; - PSHx: none; - Social history: Smoking status: Patient uses tobacco products, light tobacco smoker. No barriers to communication noted, The patient speaks fluent Northern Irish, Speaks appropriately for age. - Family history: Not pertinent. - : The pt / caregiver states he / she is not on anticoagulants. Home medication list is obtained from the patient. - Exposure Risk Screening:: None identified. Screenin:41 Screening information is obtained from the patient. Fall risk: No risks identified. dls Assistance ADL's: requires no assistance with activities of daily living. Abuse/DV Screen: The patient / caregiver reports he/she is: not in a situation that causes fear, pain or injury. Nutritional screening: No deficits noted. Advance Directives: Currently, there is no health care proxy. There is no active DNR order. There is no living will. There is no Power of Tube Cleaning Operator. home support is adequate. Assessment: 13:49 General: Appears in no apparent distress, Behavior is cooperative, pleasant. EENT: mk4 swelling left side of neck . EENT: Denies difficulty swallowing. Respiratory: Airway is patent Respiratory effort is even, unlabored, Respiratory pattern is regular. Derm: Skin is intact, is healthy with good turgor, Skin is pink, warm & dry. 15:01 General: IV meds infused IV fluids still infusing saline lock site remains patent and dls clear awaiting CT results.. 15:09 General: . dls 15:19 General: Pt ambulatory to CT and returned IV site remains patent and clear.. dls 16:23 General: Appears in no apparent distress, Behavior is appropriate for age, cooperative. jmb Neurological: Level of Consciousness is awake, alert, obeys commands, Oriented to person, place, time. Respiratory: Airway is patent Respiratory effort is even, unlabored, Respiratory pattern is regular, symmetrical. 17:09 General: Patient instructed on discharge instructions. Patient asked if there were any b questions regarding discharge, patient stated no. IV discontinued per hospital policy. Patient signed discharge instructions. Patient discharged in stable condition. . Vital Signs: 12:52 BP 167 / 105; Pulse 86; Resp 18; Temp 96.7(O); Pulse Ox 99% on R/A; Weight 80.74 kg; elp Height 6 ft. 2 in. (187.96 cm); Pain 7/10; 17:09 BP 142 / 98; Pulse 90; Resp 18; Temp 98.9(O); Pulse Ox 97% on R/A; Pain 3/10; jmb 12:52 Body Mass Index 22.85 (80.74 kg, 187.96 cm) [facility] Vitals: 12:52 Log In Time: October 21, 2016 at 12:50. [facility] ED Course: 12:52 Patient visited by Amy Ureña PCA. elp 12:52 Jt Benjamin MD is Private Physician. elp 12:52 Patient moved to Waiting elp 12:53 Patient moved to Pre RCE elp 12:57 Patient visited by Jorgito Gold RN. mlb1 12:58 Triage Initiated mlb1 13:00 Patient visited by Jorgito Gold RN. mlb1 13:01 Patient moved to Triage 2 jp4 13:11 Kwame Aden PA-C is PHCP. ar2 13:11 Addy Goldstein MD is Attending Physician. ar2 13:11 Patient visited by Kwame Aden PA-C. ar2 13:28 Patient moved to I3 / M3 ar2 13:40 CBC with Diff Sent. dls 13:40 MED Profile Sent. dls 13:40 -Blood Culture Sent. dls 13:40 BLOOD CULTURES Sent. dls 13:41 The patient / caregiver is instructed regarding the plan of care and ED course. dls 13:41 Inserted saline lock: 20 gauge in left antecubital area and blood collected. The dls patient tolerated the procedure well. No procedures done that require assistance. 13:48 Patient visited by Gillian Licea RN. mk4 14:28 [facility] Payment Agreement was scanned into [employer] and attached to record. mm15 14:46 Patient visited by Gillian Licea RN. mk4 15:49 Patient visited by Mariusz Wheat. jml1 16:23 Patient visited by Virgilio Estevez RN. jmb 17:09 Discontinued lock intact, bleeding controlled, pressure dressing applied, No jmb redness/swelling at site. 17:14 Wound Culture & GS - All Other Sources Sent. jml1 21:50 T-Sheet-- Draft Copy was scanned into [employer] and attached to record. klr 02 09:40 CT Neck With Contrast Returned. EDMS Administered Medications: 10/21 13:49 Drug: NS 0.9% 1000 ml [sodium chloride 0.9 % intravenous solution] Route: IV; Rate: mk4 bolus; Site: left antecubital; 16:38 Follow up: IV Status: Completed infusion dls 13:49 Drug: Clindamycin 900 mg Route: IVPB; Infused Over: 30 mins; Site: left antecubital; mk4 16:32 Drug: Lidocaine 10 ml [lidocaine 10 mg/mL (1 %) injection solution (10 mL)] {Note: jmb administered by Kwame Garcia.} Route: Infiltration; Order Results: Lab Order: CBC with Diff; SPEC'M 10/21/16 13:39 Test: WHITE BLOOD COUNT; Value: 15.4; Range: 4.0-10.0; Abnormal: Above high normal; Units: K/mm3; Status: F Test: RED BLOOD COUNT; Value: 5.23; Range: 4.30-6.10; Units: M/mm3; Status: F Test: HEMOGLOBIN; Value: 16.1; Range: 14.0-18.0; Units: g/dl; Status: F Test: HEMATOCRIT; Value: 47.1; Range: 42.0-52.0; Units: %; Status: F Test: MEAN CORPUSCULAR VOLUME; Value: 90.0; Range: 80.0-96.0; Units: fl; Status: F Test: MEAN CORPUSCULAR HEMOGLOBIN; Value: 30.9; Range: 27.0-33.0; Units: pg; Status: F Test: MEAN CORPUSCULAR HGB CONC; Value: 34.3; Range: 32.0-36.5; Units: g/dl; Status: F Test: RED CELL DISTRIBUTION WIDTH; Value: 11.1; Range: 11.5-14.5; Abnormal: Below low normal; Units: %; Status: F Test: PLATELET COUNT, AUTOMATED; Value: 245; Range: 150-450; Units: k/mm3; Status: F Test: NEUTROPHILS %; Value: 81.8; Range: 36.0-66.0; Abnormal: Above high normal; Units: %; Status: F Test: LYMPH %; Value: 7.4; Range: 24.0-44.0; Abnormal: Below low normal; Units: %; Status: F Test: MONO %; Value: 6.4; Range: 0.0-5.0; Abnormal: Above high normal; Units: %; Status: F Test: EOS %; Value: 1.7; Range: 0.0-3.0; Units: %; Status: F Test: BASO %; Value: 0.2; Range: 0.0-1.0; Units: %; Status: F Test: LARGE UNSTAINED CELL %; Value: 2.4; Range: 0.0-4.0; Units: %; Status: F Test: NEUTROPHILS #; Value: 12.6; Range: 1.8-7.7; Abnormal: Above high normal; Units: K/mm3; Status: F Test: LYMPH #; Value: 1.1; Range: 1.5-4.5; Abnormal: Below low normal; Units: K/mm3; Status: F Test: MONO #; Value: 1.0; Range: 0.0-0.8; Abnormal: Above high normal; Units: K/mm3; Status: F Test: EOS #; Value: 0.3; Range: 0.0-0.50; Units: K/mm3; Status: F Test: BASO #; Value: 0.0; Range: 0.0-0.2; Units: K/mm3; Status: F Test: LARGE UNSTAINED CELL #; Value: 0.4; Range: 0.0-0.4; Units: K/mm3; Status: F Lab Order: MED Profile; SPEC'M 10/21/16 13:38 Test: GLUCOSE, FASTING; Value: 96; Range: 70-105; Units: MG/DL; Status: F Test: BLOOD UREA NITROGEN; Value: 15; Range: 7-18; Units: MG/DL; Status: F Test: CREATININE FOR GFR; Value: 0.99; Range: 0.70-1.30; Units: MG/DL; Status: F Test: GLOMERULAR FILTRATION RATE; Value: > 60.0; Range: >60; Status: F Test: SODIUM LEVEL; Value: 139; Range: 136-145; Units: MEQ/L; Status: F Test: POTASSIUM SERUM; Value: 4.0; Range: 3.5-5.1; Units: MEQ/L; Status: F Test: CHLORIDE LEVEL; Value: 103; Range: 98-107; Units: MEQ/L; Status: F Test: CARBON DIOXIDE LEVEL; Value: 28; Range: 21-32; Units: MEQ/L; Status: F Test: ANION GAP; Value: 8; Range: 8-16; Units: MEQ/L; Status: F Test: CALCIUM LEVEL; Value: 9.4; Range: 8.5-10.1; Units: MG/DL; Status: F Test Note: ; Units are mL/min/1.73 m2 Chronic Kidney Disease Staging per NKF: Stage I & II GFR >=60 Normal to Mildly Decreased Stage III GFR 30-59 Moderately Decreased Stage IV GFR 15-29 Severely Decreased Stage V GFR <15 Very Little GFR Left ESRD GFR <15 on SENIOR MECHANICAL ENGINEER Lab Order: -Blood Culture; SPEC'M 10/21/16 13:38 Test: BLOOD CULTURE; Value: No growth after 72 hours . All specimens observed; Status: F Test: BLOOD CULTURE; Value: for 5 days. Results final at that time.; Status: F Test: BLOOD CULTURE; Status: F Test: BLOOD CULTURE; Value: No growth after 48 hours . All specimens observed; Status: F Test: BLOOD CULTURE; Value: for 5 days. Results final at that time.; Status: F Test: BLOOD CULTURE; Status: F Test: BLOOD CULTURE; Value: No growth after 24 hours . All specimens observed; Status: F Test: BLOOD CULTURE; Value: for 5 days. Results final at that time.; Status: F Test: BLOOD CULTURE; Value: NO GROWTH AFTER 5 DAYS; Status: F Lab Order: BLOOD CULTURES; SPEC'M 10/21/16 13:39 Test: BLOOD CULTURE; Value: No growth after 72 hours . All specimens observed; Status: F Test: BLOOD CULTURE; Value: for 5 days. Results final at that time.; Status: F Test: BLOOD CULTURE; Status: F Test: BLOOD CULTURE; Value: No growth after 48 hours . All specimens observed; Status: F Test: BLOOD CULTURE; Value: for 5 days. Results final at that time.; Status: F Test: BLOOD CULTURE; Status: F Test: BLOOD CULTURE; Value: No growth after 24 hours . All specimens observed; Status: F Test: BLOOD CULTURE; Value: for 5 days. Results final at that time.; Status: F Test: BLOOD CULTURE; Value: NO GROWTH AFTER 5 DAYS; Status: F Lab Order: Wound Culture & GS - All Other Sources; SPEC'M 10/21/16 17:15 Test: GRAM STAIN; Value: GRAM STAIN RESULT; Status: F Test: GRAM STAIN; Value: FEW RBCS; Status: F Test: GRAM STAIN; Value: NO ORGANISMS SEEN; Status: F Test: WOUND CULTURE; Value: <EXTERNAL COMMENT eCWMed> FULL REPORT IN LAB NOTES (eCW and Medent).; Status: F Test: WOUND CULTURE; Value: ORGANISM 1: STREPTOCOCCUS VIRIDANS GROUP; Status: F Test: WOUND CULTURE; Value: STREPTOCOCCUS VIRIDANS GROUP; Status: F Test: WOUND CULTURE; Value: QUANTITY OF GROWTH FEW; Status: F Test: WOUND CULTURE; Value: JEAN BAPTISTE-ISLAS POS PANEL; Status: F Test: WOUND CULTURE; Value: Method: MAN; Status: F Test: WOUND CULTURE; Value: ERYTHROMYCIN 25 S; Status: F Test: WOUND CULTURE; Value: CLINDAMYCIN 20 S; Status: F Test: WOUND CULTURE; Value: VANCOMYCIN 21 S; Status: F Radiology Order: CT Neck With Contrast Test: CT Neck With Contrast REASON FOR EXAMINATION: left neck abscess; CT SOFT-TISSUE NECK WITH CONTRAST: 10/21/2016.; ; Clinical history: Left neck abscess.; ; Technique. The patient received 75 mL as Isovue 370 scanning through the neck; with both coronal and sagittal reconstructions.; ; Findings: There were no prior studies. Prominent soft tissue swelling of the; left submandibular region. This is lateral and inferior to the alveolar ridge of; the mandible. I do not see bony destructive lesion of that alveolar ridge or; ramus of the mandible. There is soft-tissue swelling with subcutaneous edema; fairly lucent center with ill-defined enhancing edges measuring about 2.9 x 2.8 x; 1.4 cm for a fluid collection which appears to be pointing into the subcutaneous; tissues. Submandibular glands are intact. Submandibular and jugular nodes are; prominent on that side suggesting reactive nodes other nodes in the anterior; posterior cervical chain are not enlarged. Tongue base intact. Parapharyngeal; space shows some preservation of fat. The airway from the nasopharynx through; oropharynx, hypopharynx, trachea and subglottic trachea were intact. The bone; windows show dentition grossly intact without destructive erosive lesions of that; mandible. Visualized sinuses were clear. The underlying cervical vertebral; bodies, posterior elements, disc spaces and central canal is intact. The base of; the brain visible was unremarkable as were the mastoids.; ; Impression:; ; 1. Prominent soft tissue swelling over the left submandibular region with large; soft tissue abscess 2.9 x 2.8 x 1.4 cm for the fluid collection with enhancing; rim noted with much more extensive zone of edema surrounding it. This is almost; pointed to the skin surface. However the submandibular glands are not grossly; enlarged. There are reactive nodes nearby. No destructive lesions in the; mandible.; ; ; Signed by; Burak Brock MD 10/22/2016 06:53 P; Outcome: 17:02 Discharge ordered by Provider. ar2 17:09 Discharge Assessment: Patient awake, alert and oriented x 3. No cognitive and/or jmb functional deficits noted. Patient verbalized understanding of disposition instructions. Patient awake and alert. obeys commands, Oriented to person, place and time. Patient verbalized understanding of disposition instructions. Patient has no functional deficits. patient administered narcotics - no. The following High Risk Discharge criteria are identified: None. Discharged to home ambulatory, with significant other. Condition: stable Condition: improved. Discharge instructions given to patient, Instructed on discharge instructions, follow up and referral plans. medication usage, Demonstrated understanding of instructions, medications, Pt was receptive of discharge instructions/ teaching. Prescriptions given X 2. CT Study completed. Property sent home with patient. 17:12 Patient left the ED. martir Signatures: Dispatcher [employer] EDMS Lili Estrada, RN RN dls Jorgito Gold RN RN mlb1 Kwame Aden, PA-C PA-C ar2 Mariusz Wheat jml1 Jackie Evans mm15 Amy Ureña, HEALTH NAVIGATOR HEALTH NAVIGATOR [place] Virgilio EstevezRN RN jmb Gillian Licea RN RN barb4 Ramírez Bates Kathie klr Corrections: (The following items were deleted from the chart) 12:58 12:57 Acuity: TABITHA Level 3 mlb1 mlb1 Chart Complete MTDD
--- NOTE | 2016-10-27 14:27 | EDDOCDS ---
Physician Documentation [facility] Name: Brandi Martinez Age: 31 yrs Sex: Male : 1985 Arrival Date: 10/21/2016 Time: 12:51 Bed I3 / M3 Private MD: Jt Benjamin Disposition: 10/21/16 17:02 Discharged to Home/Self Care. Impression: Cutaneous abscess of face. - Condition is Stable. - Discharge Instructions: Abscess, Incision and Drainage. - Prescriptions for Clindamycin HCl 300 mg Oral Capsule - take 1 capsule by ORAL route every 6 hours; 39 capsule. Christiana 5- 325 mg Oral Tablet - take 1 tablet by ORAL route every 6 hours As needed MDD: 4 tabs; 6 tablet. - Medication Reconciliation, Local Pharmacy Hours form. - Follow up: Emergency Department; When: 1 - 2 days; Reason: Recheck today's complaints. - Problem is new. - Symptoms have improved. - Notes: take medications as prescribed. return to ER on Sunday for recheck. Historical: - Allergies: no known allergies; - Home Meds: 1. amoxicillin 875 mg Oral tab 1 tab every 12 hours 2. diclofenac sodium 75 mg oral TbEC 1 tab 2 times per day - PMHx: none; - PSHx: none; - Social history: Smoking status: Patient uses tobacco products, light tobacco smoker. No barriers to communication noted, The patient speaks fluent Ecuadorean, Speaks appropriately for age. - Family history: Not pertinent. - : The pt / caregiver states he / she is not on anticoagulants. Home medication list is obtained from the patient. - Exposure Risk Screening:: None identified. Vital Signs: 10/21 12:52 BP 167 / 105; Pulse 86; Resp 18; Temp 96.7(O); Pulse Ox 99% on R/A; Weight 80.74 kg / elp 178 lbs; Height 6 ft. 2 in. (187.96 cm); Pain 7/10; 17:09 BP 142 / 98; Pulse 90; Resp 18; Temp 98.9(O); Pulse Ox 97% on R/A; Pain 3/10; jmb 12:52 Body Mass Index 22.85 (80.74 kg, 187.96 cm) elp MDM: 13:27 IV Saline Lock ordered. ar2 13:27 -Blood Culture (Adults Only), peripheral from different site, or from device/port/PICC ar2 etc. if present ordered. 13:27 NS 0.9% 1000 ml IV at bolus once ordered. ar2 13:27 Clindamycin 900 mg IVPB once over 30 mins; dilute in 50mL of NS or D5W ordered. ar2 13:28 CBC with Diff Ordered. EDMS 13:28 MED Profile Ordered. EDMS 13:28 -Blood Culture Ordered. EDMS 13:29 CT Neck With Contrast Ordered. EDMS 13:32 -Blood Culture (Adults Only), peripheral from different site, or from device/port/PICC jml1 etc. if present complete. 13:34 BLOOD CULTURES Ordered. EDMS 14:16 CBC with Diff Reviewed. ar2 14:16 MED Profile Reviewed. ar2 14:20 Financial registration complete. mm15 14:28 [facility] Payment Agreement was scanned into [employer] and attached to record. mm15 16:31 Lidocaine 10 mg/mL (1 %) 10 ml Infiltration once; to bedside ordered. ar2 16:58 Wound Culture & GS - All Other Sources Ordered. EDMS 21:50 T-Sheet-- Draft Copy was scanned into [employer] and attached to record. klr Administered Medications: 13:49 Drug: NS 0.9% 1000 ml [sodium chloride 0.9 % intravenous solution] Route: IV; Rate: mk4 bolus; Site: left antecubital; 16:38 Follow up: IV Status: Completed infusion dls 13:49 Drug: Clindamycin 900 mg Route: IVPB; Infused Over: 30 mins; Site: left antecubital; mk4 16:32 Drug: Lidocaine 10 ml [lidocaine 10 mg/mL (1 %) injection solution (10 mL)] {Note: jmb administered by Kwame Huff} Route: Infiltration; Signatures: Dispatcher [employer] EDMS Jorgito Gold RN RN Kwame Callejas PA-C PA-C ar2 Mariusz Wheat jml1 Jackie Evans mm15 Virgilio Estevez RN RN jmb King, Margaret, RN RN barb4 Mariel Jerome Debra RN dls The chart was reviewed and I authenticate all verbal orders and agree with the evaluation and treatment provided.Attachments: 14:28 [facility] [place] mm15 21:50 T-Sheet-- Draft Copy klr Chart Complete MTDD
== END 2016-10-21 17:12 | disposition home or self-care (01) ==
LOC: M ED 12:51
DX: L02.01 Cutaneous abscess of face (principal); Z79.899 Other long term (current) drug therapy; F17.210 Nicotine dependence, cigarettes, uncomplicated
CPT/HCPCS: 10060; 36415; 70491; 80048; 85025; 87040; 87070; 87077; 87184; 87205; 96361; 96374; 99284; Q9967

== ENCOUNTER → 2017-04-27 | Outpatient (CLI) | payer OTHER ==
--- NOTE | 2017-04-27 12:44 | REP ---
PANOREX MANDIBLE VIEW: Single view. HISTORY: Cellulitis of the neck. FINDINGS: There is a large radiolucency representing dental caries in the left posterior mandibular molar. There is a periodontal radiolucency associated with the roots of the this molar in the left mandible. This radiolucency measures 16 mm in greatest diameter. No other bony destructive lesion is seen. Imp: Carious wisdom tooth left mandible with periodontal radiolucency and erosive change. Question cyst versus abscess. Signed by Chaitanya Nava MD 04/27/2017 12:52 P
== END ==
LOC: M RAD 09:23
PROVIDERS: ATTEND Specialist
DX: L03.221 Cellulitis of neck (principal)

== ENCOUNTER → 2020-09-09 | Outpatient (CLI) | payer SELFPAY | LOC: M LABSMTC 11:12 | PROVIDERS: ATTEND Pediatrics | DX: Z20.828 Contact with and (suspected) exposure to other viral communicable diseases (principal) ==